=== PATIENT | female | born 1995 | race Caucasian/White ===

== ENCOUNTER 2016-11-01 12:00 | Emergency (ER) | payer OTHER ==
[~2016-11-01] VITALS: Ht 162.6 cm; Wt 80.1 kg
[2016-11-01] MEDS ORDERED: ONDANSETRON 2MG/ML, 2ML IVPush ONE (12:30)
[2016-11-01] MEDS ORDERED: SODIUM CHLORIDE FLUSH 10ML SYR IVF ONE (12:30)
[2016-11-01] MEDS ORDERED: SODIUM CHLORIDE 0.9% 1,000ML IVBOLUS ONE (12:30)
[2016-11-01 12:53] LABS: HEMATOCRIT 42.9 % (34.6-47.8); HEMOGLOBIN 14.4 g/dL (11.7-16.4); WHITE BLOOD COUNT 13.8 x10^3/uL (3.4-10)
[2016-11-01 13:04] LABS: BLOOD UREA NITROGEN 19 mg/dL (7-18)
[2016-11-01] MEDS ORDERED: BIRTHCONTROL (13:09)
[2016-11-01 14:53] VITALS: BP 116/72
== END 2016-11-01 15:07 | disposition home or self-care (01) ==
LOC: ED 13:27
DX: N39.0 Urinary tract infection, site not specified (principal); D72.829 Elevated white blood cell count, unspecified
CPT/HCPCS: 36415; 74000; 74176; 80048; 81001; 82040; 84703; 85025; 87086; 99285